=== PATIENT | female | born 1990 | race Caucasian/White ===

== ENCOUNTER 2016-09-28 10:09 | Emergency (ER) | payer MEDICAID, OTHER ==
[~2016-09-28] VITALS: Ht 172.7 cm; Wt 106.0 kg
[~2016-09-28 10:09] MED LIST: IBUP800T23 PO; TRAM50 PO
[2016-09-28 10:14] VITALS: BP 119/79; PULSE 82; RESP 16; TEMP 97.7; O2SAT 100
--- NOTE | 2016-09-28 10:33 | PD ---
HPI Chief Complaint: ENT Complaint Time Seen by Provider: 10:23 Travel History International Travel<30 days: No Contact w/Intl Traveler<30days: No Traveled to known affect area: No History of Present Illness HPI This 26-year-old female presents with complaint of sore throat. She is concerned that she might have strep. She has had a sore throat for a couple of days. She noted some redness and exudate on the throat. Painful swallowing. sHe is generally healthy. PFSH Past Medical History Cancer: No Cardiovascular Problems: No Diabetes: No Diminished Hearing: No Glaucoma: No Hepatitis: No Hiatal Hernia: No Hypertension: No Respiratory: No Immunizations Current: Yes (school shots utd) Thyroid Disease: No PNEUMOCCOCAL Vaccine (Year): 2 ?: Not LMP: NEXPLANON : 0 Ovarian Cysts: Yes (LEFT OVARIAN CYST REMOVED 09/14/06, ALSO IN 2007,2008) Past Surgical History Abdominal Surgery: No Cardiac Surgery: No Ear Surgery: No Endocrine Surgery: No Eye Surgery: No Genitourinary Surgery: No Gynecologic Surgery: Yes (ovarian cyst removed 09/14/06,AND 2007) Neurologic Surgery: No Oral Surgery: No Pacemaker: No Thoracic Surgery: No Other Surgery: Yes (ganglion cyst removed - LEFT WRIST) Social History Alcohol Use: Yes Tobacco Use: No Substance Use: No Allergies-Medications (Allergen,Severity, Reaction): Coded Allergies: No Known Allergies (Verified , 09/28/16) Reported Meds & Prescriptions Reported Meds & Active Scripts Active Review of Systems General / Constitutional: Positive: Fever, No: Chills Eyes: No: Diploplia, Blurred Vision HENT: Positive: Sore Throat, No: Headaches, Vertigo Cardiovascular: No: Chest Pain or Discomfort Respiratory: Positive: Cough Gastrointestinal: No: Vomiting, Diarrhea Genitourinary: No: Frequency Skin: No Rash Neurologic: No: Weakness Physical Exam Narrative GENERAL: Well-developed female SKIN: Warm and dry. HEAD: Atraumatic. Normocephalic. EYES: Pupils equal and round. No scleral icterus. No injection or drainage. ENT: No nasal bleeding or discharge. Mucous membranes pink and moist. Posterior pharynx on the right side is a laceration about 1 cm in diameter. There is diffuse erythema of the posterior pharynx. There are a few shotty anterior cervical nodes NECK: Trachea midline. No JVD. CARDIOVASCULAR: Regular rate and rhythm. No murmur appreciated. RESPIRATORY: No accessory muscle use. Clear to auscultation. Breath sounds equal bilaterally. GASTROINTESTINAL: Abdomen soft, non-tender, nondistended. Hepatic and splenic margins not palpable. MUSCULOSKELETAL: No obvious deformities. No clubbing. No cyanosis. No edema. NEUROLOGICAL: Awake and alert. No obvious cranial nerve deficits. Motor grossly within normal limits. Normal speech. PSYCHIATRIC: Appropriate mood and affect; insight and judgment normal. Data Data Last Documented VS Vital Signs Date Time Temp Pulse Resp B/P Pulse Ox O2 Delivery O2 Flow Rate FiO2 09/28/16 10:14 97.7 82 16 119/79 100 Orders Group A Rapid Strep Screen (09/28/16 10:29) Strep Culture (Group A) (09/28/16 10:35) MDM Medical Decision Making Medical Screen Exam Complete: Yes Emergency Medical Condition: Yes Medical Record Reviewed: Yes Differential Diagnosis Differential includes strep throat, viral pharyngitis, Narrative Course Test for strep is negative. Patient will be treated for viral pharyngitis Diagnosis Primary Impression: Acute viral pharyngitis Additional Instructions: Tylenol or Motrin for pain, force fluids Disposition: 01 DISCHARGE HOME Condition: Stable Carlos Arroyo MD Sep 28, 2016 10:33
== END 2016-09-28 11:38 | disposition home or self-care (01) ==
LOC: PHEFT 10:09
DX: J02.8 Acute pharyngitis due to other specified organisms (principal)
CPT/HCPCS: 87081; 87880; 99283

== ENCOUNTER 2016-12-15 13:45 | Emergency (ER) | payer MEDICAID, OTHER ==
[~2016-12-15] VITALS: Ht 172.7 cm; Wt 100.0 kg
[2016-12-15 13:47] VITALS: BP 149/92; PULSE 117; RESP 16; TEMP 98.4; O2SAT 98
--- NOTE | 2016-12-15 13:51 | PD ---
Physical Exam Time Seen by Provider: 13:49 Narrative 26yo F c/o sore throat a little over a week. Reports DELATORRE. Reports fever 102.5 last night. VS reviewed. Patient seen in triage. Awaiting bed placement. Data Data Last Documented VS Vital Signs Date Time Temp Pulse Resp B/P Pulse Ox O2 Delivery O2 Flow Rate FiO2 12/15/16 13:47 98.4 117 16 149/92 98 MDM Supervised Visit with NORA: Samina Kline December 15, 2016 13:50
--- NOTE | 2016-12-15 14:32 | PD ---
HPI Chief Complaint: Cold / Flu Symptoms Time Seen by Provider: 14:31 Travel History International Travel<30 days: No Contact w/Intl Traveler<30days: No Traveled to known affect area: No PFSH Past Medical History Cancer: No Cardiovascular Problems: No Diabetes: No Diminished Hearing: No Glaucoma: No Hepatitis: No Hiatal Hernia: No Hypertension: No Respiratory: No Immunizations Current: Yes (school shots utd) Thyroid Disease: No PNEUMOCCOCAL Vaccine (Year): 2 : 0 Ovarian Cysts: Yes (LEFT OVARIAN CYST REMOVED 09/14/06, ALSO IN 2007,2008) Past Surgical History Abdominal Surgery: No Cardiac Surgery: No Ear Surgery: No Endocrine Surgery: No Eye Surgery: No Genitourinary Surgery: No Gynecologic Surgery: Yes (ovarian cyst removed 09/14/06,AND 2007) Neurologic Surgery: No Oral Surgery: No Pacemaker: No Thoracic Surgery: No Other Surgery: Yes (ganglion cyst removed - LEFT WRIST) Social History Alcohol Use: Yes Tobacco Use: No Substance Use: No Allergies-Medications (Allergen,Severity, Reaction): Coded Allergies: No Known Allergies (Verified , 09/28/16) Reported Meds & Prescriptions Reported Meds & Active Scripts Active Data Data Last Documented VS Vital Signs Date Time Temp Pulse Resp B/P Pulse Ox O2 Delivery O2 Flow Rate FiO2 12/15/16 13:47 98.4 117 16 149/[address] Agarwal MD December 15, 2016 14:32
[2016-12-15] MEDS ORDERED: IBUPROFEN 800 MG TAB PO ONE (16:30)
--- NOTE | 2016-12-15 16:40 | PD ---
HPI Chief Complaint: Cold / Flu Symptoms Time Seen by Provider: 14:45 Travel History International Travel<30 days: No Contact w/Intl Traveler<30days: No Traveled to known affect area: No History of Present Illness HPI 26-year-old female came to the emergency room with history of sore throat for past 1 week and fever for past 2 days. Patient says her boyfriend was here for the exact same condition and has been discharged home with diagnosis of strep pharyngitis an antibiotic prescription. Patient says that she last took Motrin last night. Temperature here initially upon arrival was afebrile. Patient says she's been feeling warm and I retook an oral temperature and it was 100.7. She is complaining of headache, neck pain as well as chest pain. No history of vomiting or diarrhea. She is otherwise a healthy person. [facility] Past Medical History Narrative Medical List of her past medical, surgical, social and family history was reviewed from the nursing note. Medical History: Denies Significant Hx Cancer: No Cardiovascular Problems: No Diabetes: No Diminished Hearing: No Glaucoma: No Hepatitis: No Hiatal Hernia: No Hypertension: No Respiratory: No Immunizations Current: Yes (school shots utd) Thyroid Disease: No Tetanus Vaccination: < 5 Years Influenza Vaccination: No PNEUMOCCOCAL Vaccine (Year): 2 ?: Not LMP: 11/07/16 : 0 Ovarian Cysts: Yes (LEFT OVARIAN CYST REMOVED 09/14/06, ALSO IN 2007,2008) Past Surgical History Abdominal Surgery: No Cardiac Surgery: No Ear Surgery: No Endocrine Surgery: No Eye Surgery: No Genitourinary Surgery: No Gynecologic Surgery: Yes (ovarian cyst removed 09/14/06,AND 2007) Neurologic Surgery: No Oral Surgery: No Pacemaker: No Thoracic Surgery: No Other Surgery: Yes (ganglion cyst removed - LEFT WRIST) Social History Alcohol Use: No Tobacco Use: No Substance Use: No Allergies-Medications (Allergen,Severity, Reaction): Coded Allergies: No Known Allergies (Verified , 09/28/16) Comments No known drug allergies. Reported Meds & Prescriptions Reported Meds & Active Scripts Active Diflucan (Fluconazole) 150 Mg Tab 150 Mg PO ONCE Penicillin V Potassium 500 Mg Tab 500 Mg PO Q6H 10 Days Narrative Medication List of her home medications reviewed from the nursing note. Review of Systems Except as stated in HPI: all other systems reviewed are Neg Physical Exam Narrative GENERAL: Awake, alert, obese, mild distress SKIN: Focused skin assessment warm/dry. HEAD: Atraumatic. Normocephalic. EYES: Pupils equal and round. No scleral icterus. No injection or drainage. ENT: No nasal bleeding or discharge. Mucous membranes pink and moist. Pharynx is erythematous, some tonsillar enlargement with slight exudates. TMs bilaterally have light reflex present NECK: Trachea midline. No JVD. CARDIOVASCULAR: Regular rate and rhythm. No murmur appreciated. RESPIRATORY: No accessory muscle use. Clear to auscultation. Breath sounds equal bilaterally. GASTROINTESTINAL: Abdomen soft, non-tender, nondistended. Hepatic and splenic margins not palpable. MUSCULOSKELETAL: No obvious deformities. No clubbing. No cyanosis. No edema. NEUROLOGICAL: Awake and alert. No obvious cranial nerve deficits. Motor grossly within normal limits. Normal speech. PSYCHIATRIC: Appropriate mood and affect; insight and judgment normal. Data Data Last Documented VS Vital Signs Date Time Temp Pulse Resp B/P Pulse Ox O2 Delivery O2 Flow Rate FiO2 12/15/16 16:26 14 12/15/16 13:47 98.4 117 149/92 98 Orders Group A Rapid Strep Screen (12/15/16 16:19) Ibuprofen (Motrin) (12/15/16 16:30) MDM Medical Decision Making Medical Screen Exam Complete: Yes Emergency Medical Condition: Yes Medical Record Reviewed: Yes Differential Diagnosis Strep pharyngitis, viral pharyngitis Narrative Course 4:39 PM awaiting for the rapid strep to be resulted. Patient was given Motrin for the fever and pain. 4:53 PM awaiting for the rapid strep. Case signed over to the oncoming ER physician. Procedures EKG Prior to Arrival: No Scripts Fluconazole (Diflucan)150 Mg [id number] Mg PO ONCE #1 TAB Ref 0 Prov:Nilson Canseco MD 12/15/16 Penicillin V Potassium 500 Mg [id number] Mg PO Q6H 10 Days Ref 0 Prov:Nilson Canseco MD 12/15/16 Ct Agarwal MD December 15, 2016 16:40
--- NOTE | 2016-12-15 17:03 | PD ---
Physical Exam Date Seen by Provider: December 15, 2016 Time Seen by Provider: 17:02 Narrative The patient is a 26-year-old female was initially evaluated by the previous physician, Dr. Agarwal. The patient was signed out of 5 PM with strep screen pending. Data Data Last Documented VS Vital Signs Date Time Temp Pulse Resp B/P Pulse Ox O2 Delivery O2 Flow Rate FiO2 12/15/16 16:26 14 12/15/16 13:47 98.4 117 149/92 98 Orders Group A Rapid Strep Screen (12/15/16 16:19) Ibuprofen (Motrin) (12/15/16 16:30) MDM Medical Record Reviewed: Yes Supervised Visit with NORA: No Interpretation(s) Date/Time Procedure Status Source Growth 12/15/16 16:45 Group A Streptococcus Screen (ESTUARDO) - Final Complete Throat Pos For Grp A Strep Antigen Differential Diagnosis Differential diagnoses includes strep pharyngitis, viral pharyngitis, URI, viral syndrome, mononucleosis. Narrative Course The patient was initially evaluated by Dr. Agarwal, please refer to the initial history, physical, diagnostic evaluation, and treatment modality plan. The patient was signed out at 5 PM with strep screen pending. The patient's strep screen is positive for group A strep, therefore, the patient will be treated. The patient states she gets a yeast infection when she is on penicillin, therefore, the patient will be prescribed 1 Diflucan tablet to take at the end of treatment. Diagnosis Primary Impression: Strep pharyngitis Patient Instructions: General Instructions Additional Instruction: Medications as directed. Take Diflucan when you're finished with the penicillin. Tylenol and/or Motrin for symptoms. Plenty fluids to stay hydrated. Follow-up with your primary physician. Med/Other Pt SpecificInfo: Prescription(s) given Scripts Fluconazole (Diflucan)150 Mg [id number] Mg PO ONCE #1 TAB Ref 0 Prov:Nilson Canseco MD 12/15/16 Penicillin V Potassium 500 Mg [id number] Mg PO Q6H 10 Days Ref 0 Prov:Nilson Canseco MD 12/15/16 Disposition: 01 DISCHARGE HOME Condition: Stable Nilson Canseco MD December 15, 2016 17:03
[2016-12-15] MEDS ORDERED: DIFL150T PO (17:41)
[2016-12-15] MEDS ORDERED: PENI500T PO (17:41)
== END 2016-12-15 18:01 | disposition home or self-care (01) ==
LOC: NEPD 13:45
DX: J02.0 Streptococcal pharyngitis (principal); B95.0 Streptococcus, group A, as the cause of diseases classified elsewhere; R50.9 Fever, unspecified; R51 Headache; M54.2 Cervicalgia; R07.9 Chest pain, unspecified
CPT/HCPCS: 87880; 99283

== ENCOUNTER 2017-03-11 22:03 | Emergency (ER) | payer MEDICAID ==
[~2017-03-11] VITALS: Ht 172.7 cm; Wt 105.0 kg
[~2017-03-11 22:03] MED LIST changes: +DIFL150T PO; -IBUP800T23 PO; +PENI500T PO; -TRAM50 PO
[2017-03-11 22:05] VITALS: BP 161/93; PULSE 72; RESP 16; TEMP 98.4; O2SAT 99
[2017-03-11 23:57] VITALS: BP 132/82; PULSE 79; RESP 16; O2SAT 100
[2017-03-12] MEDS ORDERED: SODIUM CHLORIDE 0.9% FLUSH 10 ML FLUSH IVF PRN
--- NOTE | 2017-03-12 00:12 | PD ---
HPI Chief Complaint: Chest Pain Time Seen by Provider: 23:59 Travel History International Travel<30 days: No Contact w/Intl Traveler<30days: No Traveled to known affect area: No History of Present Illness HPI 26-year-old female presents today with complaints of chest pain starting 2-3 hours prior to arrival. She reports it as pressure-like in her left sided chest rating to her left jaw. She denies any diaphoresis or nausea. She does report shortness of breath. Patient does state that she gets anxious and has been going through a lot of stress. She's never had pain like this before. She has no risk factors for cardiac disease. The patient has no pulmonary embolus risk factors. There are no other complaints time my examination. Incidentally she does have pink eye. She states her boyfriend had it and she hasn't now on the right eye. PFSH Past Medical History Cancer: No Cardiovascular Problems: No Diabetes: No Diminished Hearing: No Glaucoma: No Hepatitis: No Hiatal Hernia: No Hypertension: No Respiratory: No Immunizations Current: Yes (school shots utd) Thyroid Disease: No Influenza Vaccination: No PNEUMOCCOCAL Vaccine (Year): 2 ?: Not LMP: 02/03/17 : 0 Ovarian Cysts: Yes (LEFT OVARIAN CYST REMOVED 09/14/06, ALSO IN 2007,2008) Past Surgical History Abdominal Surgery: No Cardiac Surgery: No Ear Surgery: No Endocrine Surgery: No Eye Surgery: No Genitourinary Surgery: No Gynecologic Surgery: Yes (ovarian cyst removed 09/14/06,AND 2007) Neurologic Surgery: No Oral Surgery: No Pacemaker: No Thoracic Surgery: No Other Surgery: Yes (ganglion cyst removed - LEFT WRIST) Social History Alcohol Use: No Tobacco Use: No Substance Use: No Allergies-Medications (Allergen,Severity, Reaction): Coded Allergies: No Known Allergies (Verified , 09/28/16) Reported Meds & Prescriptions Reported Meds & Active Scripts Active No Active Prescriptions or Reported Medications Review of Systems Except as stated in HPI: all other systems reviewed are Neg General / Constitutional: No: Fever, Chills HENT: No: Headaches, Lightheadedness, Neck Pain Cardiovascular: Positive: Chest Pain or Discomfort, No: Palpitations, Irregular Rhythm Respiratory: Positive: Shortness of Breath, No: Cough Gastrointestinal: No: Nausea, Vomiting, Abdominal Pain Genitourinary: Positive: Other (spotting. He reports being a couple days late for her period.), No: Urgency, Frequency, Dysuria Musculoskeletal: No: Pain Neurologic: No: Weakness, Dizziness, Headache Physical Exam Narrative GENERAL: Well-nourished, well-developed patient, in no acute distress. SKIN: Focused skin assessment warm/dry. HEAD: Normocephalic/atraumatic. EYES: No scleral icterus. No injection or drainage. NECK: Supple, trachea midline. No JVD or lymphadenopathy. CARDIOVASCULAR: Regular rate and rhythm without murmurs, gallops, or rubs. RESPIRATORY: Breath sounds equal bilaterally. No accessory muscle use. GASTROINTESTINAL: Abdomen soft, non-tender, nondistended. MUSCULOSKELETAL: No cyanosis, or edema. No calf tenderness or swelling. NEUROLOGICAL: Awake and alert. Cranial nerves II through XII intact. Motor grossly within normal limits. Five out of 5 muscle strength in all muscle groups. Normal speech. Data Data Last Documented VS Vital Signs Date Time Temp Pulse Resp B/P Pulse Ox O2 Delivery O2 Flow Rate FiO2 03/12/17 00:17 18 100 03/11/17 23:57 79 132/82 Room Air 03/11/17 22:05 98.4 Orders Electrocardiogram (03/11/17 23:59) Basic Metabolic Panel (Bmp) (03/11/17 23:59) Ckmb (Isoenzyme) Profile (03/11/17 23:59) Complete Blood Count With Diff (03/11/17 23:59) Troponin I (03/11/17 23:59) Chest, Single Ap (03/11/17 23:59) Ecg Monitoring (03/11/17 23:59) Bilateral Bp Monitoring (03/11/17 23:59) Iv Access Insert/Monitor (03/11/17 23:59) Oximetry (03/11/17 23:59) Oxygen Administration (03/11/17 23:59) Sodium Chloride 0.9% Flush (Ns Flush) (03/12/17 00:00) Ed Urine Pregnancytest Poc (03/11/17 23:59) Labs Laboratory Tests Test 03/12/17 00:10 White Blood Count 10.1 TH/MM3 Red Blood Count 4.25 MIL/MM3 Hemoglobin 11.0 GM/DL Hematocrit 34.6 % Mean Corpuscular Volume 81.3 FL Mean Corpuscular Hemoglobin 25.8 PG Mean Corpuscular Hemoglobin 31.7 % Concent Red Cell Distribution Width 13.6 % Platelet Count 400 TH/MM3 Mean Platelet Volume 7.7 FL Neutrophils (%) (Auto) 57.0 % Lymphocytes (%) (Auto) 27.9 % Monocytes (%) (Auto) 12.6 % Eosinophils (%) (Auto) 1.3 % Basophils (%) (Auto) 1.2 % Neutrophils # (Auto) 5.8 TH/MM3 Lymphocytes # (Auto) 2.8 TH/MM3 Monocytes # (Auto) 1.3 TH/MM3 Eosinophils # (Auto) 0.1 TH/MM3 Basophils # (Auto) 0.1 TH/MM3 CBC Comment DIFF FINAL Differential Comment Sodium Level 142 MEQ/L Potassium Level 3.6 MEQ/L Chloride Level 108 MEQ/L Carbon Dioxide Level 24.1 MEQ/L Anion Gap 10 MEQ/L Blood Urea Nitrogen 12 MG/DL Creatinine 0.58 MG/DL Estimat Glomerular Filtration 128 ML/MIN Rate Random Glucose 76 MG/DL Calcium Level 8.2 MG/DL Total Creatine Kinase 96 U/L Troponin I LESS THAN 0.02 NG/ML MDM Medical Decision Making Medical Screen Exam Complete: Yes Emergency Medical Condition: Yes Differential Diagnosis Muscle skeletal pain versus stress related versus ACS versus pulmonary embolus Narrative Course 26-year-old female presents with complaints of chest pain prior to arrival. The patient's EKG and cardiac enzymes are within normal limits. The patient does have a history of anxiety but does not treated for this. Patient states she is going through a lot of stress. I informed her that this is unlikely her heart. She is reassured. She is instructed to avoid stressful episodes. She is also instructed to avoid drinking Mountain Dew caffeinated beverages. She has no DVT risk factors. She'll be discharged told to follow up with primary care physician of her choice. Diagnosis Primary Impression: Atypical chest pain Additional Impression: acute life stressors. Scripts No Active Prescriptions or Reported Meds Disposition: DISCHARGE HOME Condition: Stable Man Sanchez MD Mar 12, 2017 00:12
[2017-03-12 00:17] VITALS: RESP 18; O2SAT 100
--- NOTE | 2017-03-12 01:00 | RADRPT ---
EXAM DATE/TIME: 03/12/2017 00:17 [facility] COMPARISON: No previous studies available for comparison. INDICATIONS : Left sided chest pain. MEDICAL HISTORY : None. SURGICAL HISTORY : None. ENCOUNTER: Initial ACUITY: 1 day PAIN SCORE: 8/10 LOCATION: Left chest FINDINGS: A single view of the chest demonstrates the lungs to be symmetrically aerated without evidence of mas s, infiltrate or effusion. The cardiomediastinal contours are unremarkable. Osseous structures are intact. CONCLUSION: 1. No acute cardiopulmonary disease. Trey Lizarraga MD on March 12, 2017 at 0:58 Board Certified Radiologist. This report was verified electronically.
[2017-03-12 02:56] LABS: AUTOMATED NEUTROPHIL # 5.8 TH/MM3 (1.8-7.7); BASOPHIL # 0.1 TH/MM3 (0-0.2); BASOPHIL % 1.2 % (0.0-2.0); EOSINOPHIL # 0.1 TH/MM3 (0-0.4); EOSINOPHIL % 1.3 % (0.0-4.0); HEMATOCRIT 34.6 % (35.0-46.0); HEMO FLAGS DIFF FINAL; LYMPH % 27.9 % (9.0-44.0); LYMPHOCYTE # 2.8 TH/MM3 (1.0-4.8); MEAN CELL VOLUME 81.3 FL (80.0-100.0); MEAN CORPUSCULAR HEMOGLOBIN 25.8 PG (27.0-34.0); MEAN CORPUSCULAR HGB CONC 31.7 % (32.0-36.0); MONO % 12.6 % (0.0-8.0); PLATELET COUNT 400 TH/MM3 (150-450); RED BLOOD COUNT 4.25 MIL/MM3 (4.00-5.30); RED CELL DISTRIBUTION WIDTH 13.6 % (11.6-17.2); WHITE BLOOD COUNT 10.1 TH/MM3 (4.0-11.0)
[2017-03-12 03:18] LABS: ANION GAP 10 MEQ/L (5-15); BICARBONATE 24.1 MEQ/L (21.0-32.0); BLOOD UREA NITROGEN 12 MG/DL (7-18); CHLORIDE 108 MEQ/L (98-107); GLOMERULAR FILTRATION RATE 128 ML/MIN (>89); POTASSIUM 3.6 MEQ/L (3.5-5.1); SODIUM (NA) 142 MEQ/L (136-145)
[2017-03-12 03:24] LABS: CREATINE KINASE 96 U/L (26-192)
--- NOTE | 2017-03-12 11:07 | EKG ---
Date Performed: 03/12/2017 Time Performed: 00:14:57 PTAGE: 26 years EKG: Sinus rhythm NORMAL ECG Since PREVIOUS TRACING , no significant change noted PREVIOUS TRACIN09/08/2011 23.48 DOCTOR: Trey Herrera Interpretating Date/Time 03/12/2017 11:06:37
== END 2017-03-12 04:11 | disposition home or self-care (01) ==
LOC: NEPE 22:03
DX: R07.89 Other chest pain (principal); F43.9 Reaction to severe stress, unspecified
CPT/HCPCS: 71010; 80048; 82550; 84484; 84703; 85025; 93005; 99285

== ENCOUNTER 2017-03-15 15:43 | Emergency (ER) | payer MEDICAID ==
[~2017-03-15] VITALS: Ht 175.3 cm; Wt 111.0 kg
[2017-03-15 15:47] VITALS: BP 136/76; PULSE 91; RESP 16; TEMP 98.9; O2SAT 98
[2017-03-15] MEDS ORDERED: POLY3.5O EACH EYE (16:42)
--- NOTE | 2017-03-15 16:44 | PD ---
HPI Chief Complaint: Eye Problems/Injury Time Seen by Provider: 16:35 Travel History International Travel<30 days: No Contact w/Intl Traveler<30days: No Traveled to known affect area: No History of Present Illness HPI 26-year-old female presents to the emergency room for evaluation of bilateral eye redness, drainage, and itching for the past few days. Symptoms started first in the right eye and a few days ago spread to the left eye. She wakes up every morning with her eyes crusted shut. Reports extreme itching and she has tried to avoid scratching but has been rubbing her right eye persistently. She has mild photophobia in the sun. No significant tearing, pain, or changes in visual acuity. Patient's boyfriend had bilateral conjunctivitis just prior to her developing symptoms. She woke up one morning with slight irritation in her right eye since she used his erythromycin ointment and the following morning had severe worsening of symptoms. She does not use contacts. [facility] Past Medical History Medical History: Denies Significant Hx Cancer: No Cardiovascular Problems: No Diabetes: No Diminished Hearing: No Glaucoma: No Hepatitis: No Hiatal Hernia: No Hypertension: No Respiratory: No Immunizations Current: Yes (school shots utd) Thyroid Disease: No Influenza Vaccination: No PNEUMOCCOCAL Vaccine (Year): 2 ?: Not LMP: XPLANON : 0 Ovarian Cysts: Yes (LEFT OVARIAN CYST REMOVED 09/14/06, ALSO IN 2007,2008) Past Surgical History Abdominal Surgery: No Cardiac Surgery: No Ear Surgery: No Endocrine Surgery: No Eye Surgery: No Genitourinary Surgery: No Gynecologic Surgery: Yes (ovarian cyst removed 09/14/06,AND 2007) Neurologic Surgery: No Oral Surgery: No Pacemaker: No Thoracic Surgery: No Other Surgery: Yes (ganglion cyst removed - LEFT WRIST) Social History Alcohol Use: No Tobacco Use: No Substance Use: No Allergies-Medications (Allergen,Severity, Reaction): Coded Allergies: No Known Allergies (Verified , 03/15/17) Reported Meds & Prescriptions Reported Meds & Active Scripts Active Polymyxin B-Trimethoprim Opth (Trimethoprim-Polymyxin B Opth) 10,000-0.1 Unit/Ml -% Soln 1 Drop EACH EYE Q6HR Bacitracin-Polymyxin B Opth Oint (Bacitracin/Polymyxin B Sulfate) 500-10,000 Unit/Gm Oint 1 Applic EACH EYE Q6HR Review of Systems Except as stated in HPI: all other systems reviewed are Neg Physical Exam Narrative GENERAL: Well-nourished, well-developed female in no acute distress. Afebrile. Ambulatory. SKIN: Focused skin assessment warm/dry. HEAD: Normocephalic. EYES: PERRL, EOMI without pain. Severe bilateral injection with chemosis of the right eye. Mild discharge. No scleral icterus. No significant photophobia on exam. Fluorescein staining bilaterally reveals no corneal abrasion, ulceration, or foreign body. Visual acuity is 20/40 in the left and 20/25 in the right. NECK: Supple, trachea midline. No JVD or lymphadenopathy. CARDIOVASCULAR: Regular rate and rhythm without murmurs, gallops, or rubs. RESPIRATORY: Breath sounds equal bilaterally. No accessory muscle use. PSYCHIATRIC: No delusional thought processes. No hallucinations. Data Data Last Documented VS Vital Signs Date Time Temp Pulse Resp B/P Pulse Ox O2 Delivery O2 Flow Rate FiO2 03/15/17 15:47 98.9 91 16 136/76 98 MDM Medical Decision Making Medical Screen Exam Complete: Yes Emergency Medical Condition: Yes Medical Record Reviewed: Yes Differential Diagnosis Conjunctivitis, scleritis, iritis, foreign body Narrative Course 26-year-old female presents to the emergency room for evaluation of bilateral eye redness, drainage, and itching for the past week. Patient's boyfriend was diagnosed with bilateral conjunctivitis just prior to her developing symptoms. She is waking up with her eyes crusted shut every morning. She has been using her boyfriend's erythromycin eye ointment without significant relief in symptoms. Physical exam reveals moderate injection bilaterally with ecchymosis on the right. Patient could have resistant strain of conjunctivitis or it could be viral. She will be given bacitracin/Ali sporran eyedrops and told to follow-up with transformation manager or return for worsening symptoms. She understands and agrees to plan. Diagnosis Primary Impression: Conjunctivitis Qualified Code: H10.33 - Acute bacterial conjunctivitis of both eyes Referrals: Legal Biller Primary Care Physician Patient Instructions: Conjunctivitis (ED), General Instructions Additional Instructions: Rest and drink plenty of fluids. Apply drops 4 times daily for 5-7 days Follow-up with a primary care physician. Return to the emergency room for worsening symptoms. Med/Other Pt SpecificInfo: Prescription(s) given Scripts Trimethoprim-Polymyxin B Opth (Polymyxin B-Trimethoprim Opth)10,000-0.1 Unit/Ml- % Soln1 Drop EACH EYE Q6HR #1 BOTTLE Prov:Dionne Max DO 03/15/17 Bacitracin-Polymyxin B Opth Oint 500-10,000 Unit/Gm Oint1 Applic EACH EYE Q6HR #3.5 GM Ref 0 Prov:Dionne Max DO 03/15/17 Disposition: 01 DISCHARGE HOME Condition: Stable Shahana Ta Mar 15, 2017 16:44
[2017-03-15] MEDS ORDERED: TRIMSOL3 EACH EYE (16:51)
== END 2017-03-15 16:54 | disposition home or self-care (01) ==
LOC: PHED 15:43
DX: H10.33 Unspecified acute conjunctivitis, bilateral (principal)
CPT/HCPCS: 99283

== ENCOUNTER 2017-03-28 21:00 | Emergency (ER) | payer MEDICAID ==
[~2017-03-28 21:00] MED LIST changes: -DIFL150T PO; -PENI500T PO; +POLY3.5O EACH EYE; +TRIMSOL3 EACH EYE
[2017-03-28 21:02] VITALS: BP 172/95; PULSE 80; RESP 16; TEMP 98.7; O2SAT 100
== END 2017-03-28 23:59 | disposition left against medical advice (07) ==
LOC: NED 21:00
DX: K08.89 Other specified disorders of teeth and supporting structures (principal); Z53.21 Procedure and treatment not carried out due to patient leaving prior to being seen by health care provider
CPT/HCPCS: 99281

== ENCOUNTER 2017-08-03 17:57 | Emergency (ER) | payer MEDICAID ==
[~2017-08-03] VITALS: Ht 175.3 cm; Wt 115.2 kg
[2017-08-03 18:09] VITALS: BP 149/58; PULSE 107; RESP 16; TEMP 102.7; O2SAT 97
[2017-08-03 18:26] VITALS: BP 141/82; PULSE 105; RESP 18; TEMP 101; O2SAT 99
[2017-08-03] MEDS ORDERED: SODIUM CHLOR 0.9% 1000 ML INJ 1,000 ML IV SCH (18:39)
[2017-08-03] MEDS ORDERED: SODIUM CHLORIDE 0.9% FLUSH 10 ML FLUSH IV FLUSH PRN (18:45)
[2017-08-03] MEDS ORDERED: ONDANSETRON HCL 4 MG/2 ML VIAL IVP ONE (18:45)
--- NOTE | 2017-08-03 18:51 | PD ---
HPI Chief Complaint: Abdominal Pain Time Seen by Provider: 18:39 Travel History International Travel<30 days: No Contact w/Intl Traveler<30days: No Traveled to known affect area: No History of Present Illness HPI 27-year-old female patient presents to the ER today because she states that she has not been feeling well for the last 4-5 days, has had coughing, sore throat, body aches, chest discomfort especially with coughing and movements. She has been nauseous, vomiting, and constipated. She states that she has also been having abdominal pains which she currently measures at a 7 out of 10. She does not know any exacerbating or alleviating factors. She states that it goes to the back. She does not know any sick contacts. Modifying Factors: None Associated Signs & Symptoms: Cough, congestion, sore throat, body aches, chest discomfort, nausea, vomiting, constipation, abdominal pains with radiation to the back Risk Factors: None PFSH Past Medical History Cancer: No Cardiovascular Problems: No Diabetes: No Diminished Hearing: No Glaucoma: No Hepatitis: No Hiatal Hernia: No Hypertension: No Medical other: No Respiratory: No Immunizations Current: Yes (school shots utd) Thyroid Disease: No Tetanus Vaccination: Unknown PNEUMOCCOCAL Vaccine (Year): 2 ?: Not LMP: 07/08/17 : 0 Ovarian Cysts: Yes (LEFT OVARIAN CYST REMOVED 09/14/06, ALSO IN 2007,2008) Past Surgical History Abdominal Surgery: No Cardiac Surgery: No Ear Surgery: No Endocrine Surgery: No Eye Surgery: No Genitourinary Surgery: No Gynecologic Surgery: Yes (ovarian cyst removed 09/14/06,AND 2007) Neurologic Surgery: No Oral Surgery: No Pacemaker: No Thoracic Surgery: No Other Surgery: Yes (ganglion cyst removed - LEFT WRIST) Social History Alcohol Use: No Tobacco Use: No Substance Use: No Allergies-Medications (Allergen,Severity, Reaction): Coded Allergies: No Known Allergies (Verified Adverse Reaction, Unknown, 08/03/17) Reported Meds & Prescriptions Reported Meds & Active Scripts Active No Active Prescriptions or Reported Medications Review of Systems Except as stated in HPI: all other systems reviewed are Neg Physical Exam Narrative GENERAL: [Well-developed young female patient currently in mild distress. Awake and oriented 3. SKIN: Focused skin assessment warm/dry. HEAD: Atraumatic. Normocephalic. EYES: Pupils equal and round. No scleral icterus. No injection or drainage. ENT: Mucosa pink and moist. Notable erythema with no significant exudates. No uvular edema. No uvular, palatal, or tonsillar deviation. Airway patent. NECK: Trachea midline. No JVD. Supple. CARDIOVASCULAR: Regular rate and rhythm. No murmur appreciated. RESPIRATORY: No accessory muscle use. Clear to auscultation. Breath sounds equal bilaterally. GASTROINTESTINAL: Abdomen soft, right lower quadrant tenderness without guarding or rebound, nondistended. Hepatic and splenic margins not palpable. BACK: No CVA tenderness. No rash. No point tenderness on palpation of the spine. MUSCULOSKELETAL: No obvious deformities. No clubbing. No cyanosis. No edema. NEUROLOGICAL: Awake and alert. No obvious cranial nerve deficits. Motor grossly within normal limits. Normal speech. PSYCHIATRIC: Appropriate mood and affect; insight and judgment normal. Data Data Last Documented VS Vital Signs Date Time Temp Pulse Resp B/P (MAP) Pulse Ox O2 Delivery O2 Flow Rate FiO2 08/03/17 18:29 18 08/03/17 18:26 101.0 105 141/82 (101) 99 Room Air Orders Orders Complete Blood Count With Diff (08/03/17 18:39) Comprehensive Metabolic Panel (08/03/17 18:39) Lipase (08/03/17 18:39) Urinalysis - C+S If Indicated (08/03/17 18:39) Ct Abd/Pel W/O Iv Contrast (08/03/17 18:39) Iv Access Insert/Monitor (08/03/17 18:39) Ecg Monitoring (08/03/17 18:39) Oximetry (08/03/17 18:39) Ondansetron Inj (Zofran Inj) (08/03/17 18:45) Sodium Chlor 0.9% 1000 Ml Inj (Ns 1000 M (08/03/17 18:39) Sodium Chloride 0.9% Flush (Ns Flush) (08/03/17 18:45) Chest, Single Ap (08/03/17 18:39) Ed Urine Pregnancytest Poc (08/03/17 18:39) Acetaminophen (Tylenol) (08/03/17 19:00) MDM Medical Decision Making Medical Screen Exam Complete: Yes Emergency Medical Condition: Yes Medical Record Reviewed: Yes Differential Diagnosis Viral syndrome versus influenza versus pneumonia versus UTI versus renal colic versus acute cholecystitis Narrative Course Lab work, CAT scan, and IV fluids were initiated on the patient. Physician Communication Physician Communication Case is signed out to Dr. Agosto at 7 PM pending workup and reevaluation. Diagnosis Primary Impression: Abdominal pain Additional Impression: Atypical chest pain Scripts No Active Prescriptions or Reported Meds Condition: Stable Deana Burks MD Aug 03, 2017 18:51
[2017-08-03] MEDS ORDERED: ACETAMINOPHEN 500 MG CPLT PO ONE (19:00)
[2017-08-03 19:15] VITALS: O2SAT 97
[2017-08-03 19:15] LABS: AUTOMATED NEUTROPHIL # 6.7 TH/MM3 (1.8-7.7); BASOPHIL % 0.3 % (0.0-2.0); EOSINOPHIL % 0.1 % (0.0-4.0); HEMATOCRIT 36.1 % (35.0-46.0); HEMOGLOBIN 11.3 GM/DL (11.6-15.3); LYMPH % 3.9 % (9.0-44.0); LYMPHOCYTE # 0.3 TH/MM3 (1.0-4.8); MEAN CELL VOLUME 81.2 FL (80.0-100.0); MEAN CORPUSCULAR HEMOGLOBIN 25.4 PG (27.0-34.0); MEAN CORPUSCULAR HGB CONC 31.2 % (32.0-36.0); MEAN PLATELET VOLUME 7.2 FL (7.0-11.0); MONO % 10.2 % (0.0-8.0); MONOCYTE # 0.8 TH/MM3 (0-0.9); NEUT % 85.5 % (16.0-70.0); PLATELET COUNT 328 TH/MM3 (150-450); RED BLOOD COUNT 4.45 MIL/MM3 (4.00-5.30); RED CELL DISTRIBUTION WIDTH 13.2 % (11.6-17.2); WHITE BLOOD COUNT 7.8 TH/MM3 (4.0-11.0)
[2017-08-03 19:16] VITALS: BP 141/82; PULSE 98; RESP 18; O2SAT 98
[2017-08-03 19:23] LABS: CHLORIDE 103 MEQ/L (98-107); SODIUM (NA) 137 MEQ/L (136-145)
[2017-08-03 19:23] LABS: BILIRUBIN, URINE NEG (NEG); BLOOD, URINE SMALL (NEG); GLUCOSE,URINE NEG (NEG); KETONE, URINE NEG (NEG); NITRITE,URINE NEG (NEG); URINE LEUKOCYTE ESTERASE NEG (NEG)
[2017-08-03 19:26] LABS: ALBUMIN 3.5 GM/DL (3.4-5.0); BICARBONATE 27.6 MEQ/L (21.0-32.0); CALCIUM 8.3 MG/DL (8.5-10.1); GLUCOSE,RANDOM 95 MG/DL (74-106); LIPASE 69 U/L (73-393)
[2017-08-03 19:27] LABS: BLOOD UREA NITROGEN 9 MG/DL (7-18)
[2017-08-03 19:29] LABS: ALT (GPT) 29 U/L (10-53); AST (GOT) 18 U/L (15-37)
[2017-08-03 19:30] LABS: CREATININE 0.59 MG/DL (0.50-1.00); GLOMERULAR FILTRATION RATE 124 ML/MIN (>89)
[2017-08-03 19:30] LABS: URINE COLOR YELLOW (YELLW/STRAW)
[2017-08-03 19:31] LABS: TOTAL BILIRUBIN ADULT 0.5 MG/DL (0.2-1.0); TOTAL PROTEIN 7.4 GM/DL (6.4-8.2)
[2017-08-03 19:32] LABS: ALKALINE PHOSPHATASE 85 U/L (45-117)
[2017-08-03 19:32] LABS: MUCUS URINE MOD /lpf (OCC)
[2017-08-03 19:36] LABS: BACTERIA, URINE FEW /hpf
[2017-08-03 19:37] LABS: AMORPHOUS SEDIMENT, URINE MOD
--- NOTE | 2017-08-03 19:57 | RADRPT ---
EXAM DATE/TIME: 08/03/2017 19:05 [facility] COMPARISON: CHEST SINGLE AP, March 12, 2017, 0:17. INDICATIONS : Cough and fever and aches for 3 days. MEDICAL HISTORY : None. SURGICAL HISTORY : None. ENCOUNTER: Initial ACUITY: 3 days PAIN SCORE: 8/10 LOCATION: all over FINDINGS: A single view of the chest demonstrates the lungs to be symmetrically aerated without evidence of mas s, infiltrate or effusion. The cardiomediastinal contours are unremarkable. Osseous structures are intact. CONCLUSION: No evidence of acute cardiopulmonary disease. Nickolas Schwartz MD on August 03, 2017 at 19:55 Board Certified Radiologist. This report was verified electronically.
--- NOTE | 2017-08-03 19:59 | RADRPT ---
EXAM DATE/TIME: 08/03/2017 19:27 [facility] COMPARISON: Report only CT ABDOMEN & PELVIS W CONTRAST, March 30, 2009, 1:10. INDICATIONS : Evaluate for renal stone. Right lower quadrant pain radiating into lower back. ORAL CONTRAST: No oral contrast ingested. RADIATION DOSE: 21.02 CTDIvol (mGy) MEDICAL HISTORY : None SURGICAL HISTORY : None. ENCOUNTER: Initial ACUITY: 4 - 6 days PAIN SCALE: 10/10 LOCATION: Right lower quadrant TECHNIQUE: Volumetric scanning of the abdomen and pelvis was performed. Using automated exposure control and ad justment of the mA and/or kV according to patient size, radiation dose was kept as low as reasonably achievable to obtain optimal diagnostic quality images. DICOM format image data is available electro nically for review and comparison. FINDINGS: LOWER LUNGS: The visualized lower lungs are clear. LIVER: Homogeneous density without lesion. There is no dilation of the biliary tree. No calcified gallston es. SPLEEN: Normal size without lesion. PANCREAS: Within normal limits. KIDNEYS: Normal in size and shape. There is no mass, stone, or hydronephrosis. ADRENAL GLANDS: Within normal limits. VASCULAR: There is no aortic aneurysm. BOWEL/MESENTERY: The stomach, small bowel, and colon demonstrate no acute abnormality. There is no free intraperitone al air or fluid. Normal appendix. ABDOMINAL WALL: Within normal limits. RETROPERITONEUM: There is no lymphadenopathy. BLADDER: No wall thickening or mass. REPRODUCTIVE: Within normal limits. INGUINAL: There is no lymphadenopathy or hernia. MUSCULOSKELETAL: Within normal limits for patient age. CONCLUSION: Negative CT of the abdomen and pelvis. Nickolas Schwartz MD on August 03, 2017 at 19:56 Board Certified Radiologist. This report was verified electronically.
[2017-08-03] MEDS ORDERED: KETOROLAC TROMETHAMINE 30 MG/ML (IVP) VIAL IV PUSH ONE (20:15)
[2017-08-03] MEDS ORDERED: PROM6.256 PO (20:40)
[2017-08-03] MEDS ORDERED: NAPR500T2 PO (20:40)
[2017-08-03] MEDS ORDERED: OSEL60SU PO (20:40)
[2017-08-03] MEDS ORDERED: ZOFR4TAB3 SL (20:40)
--- NOTE | 2017-08-03 20:41 | PD ---
Data Data Last Documented VS Vital Signs Date Time Temp Pulse Resp B/P (MAP) Pulse Ox O2 Delivery O2 Flow Rate FiO2 08/03/17 19:16 98 18 141/82 (101) 98 Room Air 08/03/17 18:26 101.0 Orders Orders Complete Blood Count With Diff (08/03/17 18:39) Comprehensive Metabolic Panel (08/03/17 18:39) Lipase (08/03/17 18:39) Urinalysis - C+S If Indicated (08/03/17 18:39) Ct Abd/Pel W/O Iv Contrast (08/03/17 18:39) Iv Access Insert/Monitor (08/03/17 18:39) Ecg Monitoring (08/03/17 18:39) Oximetry (08/03/17 18:39) Ondansetron Inj (Zofran Inj) (08/03/17 18:45) Sodium Chlor 0.9% 1000 Ml Inj (Ns 1000 M (08/03/17 18:39) Sodium Chloride 0.9% Flush (Ns Flush) (08/03/17 18:45) Chest, Single Ap (08/03/17 18:39) Ed Urine Pregnancytest Poc (08/03/17 18:39) Acetaminophen (Tylenol) (08/03/17 19:00) Ketorolac Inj (Toradol Inj) (08/03/17 20:15) Influenzae A/B Antigen (08/03/17 20:07) Labs Laboratory Tests Test 08/03/17 18:50 08/03/17 19:00 Urine Color YELLOW Urine Turbidity MOD Urine pH 6.0 Urine Specific [place] 1.028 Urine Protein TRACE mg/dL Urine Glucose (UA) NEG mg/dL Urine Ketones NEG mg/dL Urine Occult Blood SMALL Urine Nitrite NEG Urine Bilirubin NEG Urine Leukocyte Esterase NEG Urine Squamous Epithelial Cells 6-8 /hpf Urine Amorphous Sediment MOD Urine Bacteria FEW /hpf Urine Mucus MOD /lpf Microscopic Urinalysis Comment CULT NOT INDICATED White Blood Count 7.8 TH/MM3 Red Blood Count 4.45 MIL/MM3 Hemoglobin 11.3 GM/DL Hematocrit 36.1 % Mean Corpuscular Volume 81.2 FL Mean Corpuscular Hemoglobin 25.4 PG Mean Corpuscular Hemoglobin Concent 31.2 % Red Cell Distribution Width 13.2 % Platelet Count 328 TH/MM3 Mean Platelet Volume 7.2 FL Neutrophils (%) (Auto) 85.5 % Lymphocytes (%) (Auto) 3.9 % Monocytes (%) (Auto) 10.2 % Eosinophils (%) (Auto) 0.1 % Basophils (%) (Auto) 0.3 % Neutrophils # (Auto) 6.7 TH/MM3 Lymphocytes # (Auto) 0.3 TH/MM3 Monocytes # (Auto) 0.8 TH/MM3 Eosinophils # (Auto) 0.0 TH/MM3 Basophils # (Auto) 0.0 TH/MM3 CBC Comment DIFF FINAL Differential Comment Blood Urea Nitrogen 9 MG/DL Creatinine 0.59 MG/DL Random Glucose 95 MG/DL Total Protein 7.4 GM/DL Albumin 3.5 GM/DL Calcium Level 8.3 MG/DL Alkaline Phosphatase 85 U/L Aspartate Amino Transf (AST/SGOT) 18 U/L Alanine Aminotransferase (ALT/SGPT) 29 U/L Total Bilirubin 0.5 MG/DL Sodium Level 137 MEQ/L Potassium Level 3.3 MEQ/L Chloride Level 103 MEQ/L Carbon Dioxide Level 27.6 MEQ/L Anion Gap 6 MEQ/L Estimat Glomerular Filtration Rate 124 ML/MIN Lipase 69 U/L MDM Supervised Visit with NORA: No Narrative Course This is a 27-year-old female who presents to the emergency department with multiple nonspecific complaints including body aches, fevers, chills, abdominal discomfort and sore throat. She had an extensive workup including labs, CT abdomen and pelvis and chest x-ray which were reassuring. Influenza test is positive for flu. Patient will be treated with Tamiflu and symptomatic management. I think she can be discharged home. Diagnosis Primary Impression: Influenza Patient Instructions: General Instructions Additional Instruction: If you develop severe chest pain, shortness of breath, sweating, lightheadedness , dizziness or difficulty breathing return to the emergency department immediately. Followup with your primary care physician in 2-3 days if your symptoms are not resolved. Med/Other Pt SpecificInfo: Prescription(s) given Scripts Ondansetron Odt (Zofran Odt) 4 Mg Tab 4 MG SL Q6HR Y for Nausea/Vomiting, #10 TAB 0 Refills Prov: Shilpi Agosto MD 08/03/17 Oseltamivir Liq (Tamiflu Liq) 6 Mg/Ml Cara 75 MG PO BID for Mgmt Viral Infection for 5 Days, ML 0 Refills Prov: Shilpi Agosto MD 08/03/17 Naproxen (Naproxen) 500 Mg Tab 500 MG PO BID for Pain Management, #20 TAB 0 Refills Prov: Shilpi Agosto MD 08/03/17 Promethazine-Codeine Liq (Promethazine-Codeine Liq) 6.25-10 Mg/5 Ml Syrp 5 ML PO Q6H Y for COUGH AND/OR COLD SYMPTOMS, #60 ML 0 Refills Prov: Shilpi Agosto MD 08/03/17 Disposition: 01 DISCHARGE HOME Condition: Stable Shilpi Agosto MD Aug 03, 2017 20:40
[2017-08-03 20:47] VITALS: BP 136/80; PULSE 96; RESP 18; O2SAT 98
[2017-08-03] MEDS ORDERED: OSELTAMIVIR PHOSPHATE 75 MG CAP PO ONE (21:00)
== END 2017-08-03 21:14 | disposition home or self-care (01) ==
LOC: PHED 17:57
DX: J09.X2 Influenza due to identified novel influenza A virus with other respiratory manifestations (principal); R07.89 Other chest pain; R11.2 Nausea with vomiting, unspecified; K59.00 Constipation, unspecified
CPT/HCPCS: 71010; 74176; 80053; 81001; 83690; 84703; 85025; 87804; 96361; 96374; 96375; 99285; J1885; J2405; J7030

== ENCOUNTER 2017-08-08 13:34 | Emergency (ER) | payer MEDICAID ==
[~2017-08-08] VITALS: Ht 175.3 cm; Wt 115.0 kg
[~2017-08-08 13:34] MED LIST changes: +NAPR500T2 PO; +OSEL60SU PO; -POLY3.5O EACH EYE; +PROM6.256 PO; -TRIMSOL3 EACH EYE; +ZOFR4TAB3 SL
[2017-08-08 13:52] VITALS: BP 142/87; PULSE 90; RESP 17; TEMP 98.6; O2SAT 99
[2017-08-08] MEDS ORDERED: ALBU6.7H INH (14:50)
[2017-08-08] MEDS ORDERED: PRED20 PO (14:50)
[2017-08-08] MEDS ORDERED: AZIT250T3 PO (14:50)
--- NOTE | 2017-08-08 14:50 | PD ---
HPI Chief Complaint: Respiratory Symptoms Time Seen by Provider: 14:07 Travel History International Travel<30 days: No Contact w/Intl Traveler<30days: No Traveled to known affect area: No History of Present Illness HPI 27-year-old female complains of hemoptysis this morning. She reports a few episodes of phlegm with droplets of blood. No chest pain or shortness of breath. She reports recent influenza infection. She does not smoke. No chest pain or dyspnea. No sore throat PFSH Past Medical History Cancer: No Cardiovascular Problems: No Diabetes: No Diminished Hearing: No Glaucoma: No Hepatitis: No Hiatal Hernia: No Hypertension: No Respiratory: No Immunizations Current: Yes (school shots utd) Thyroid Disease: No PNEUMOCCOCAL Vaccine (Year): 2 ?: Not : 0 Ovarian Cysts: Yes (LEFT OVARIAN CYST REMOVED 09/14/06, ALSO IN 2007,2008) Past Surgical History Abdominal Surgery: No Cardiac Surgery: No Ear Surgery: No Endocrine Surgery: No Eye Surgery: No Genitourinary Surgery: No Gynecologic Surgery: Yes (ovarian cyst removed 09/14/06,AND 2007) Neurologic Surgery: No Oral Surgery: No Pacemaker: No Thoracic Surgery: No Other Surgery: Yes (ganglion cyst removed - LEFT WRIST) Social History Alcohol Use: No Tobacco Use: No Substance Use: No Allergies-Medications (Allergen,Severity, Reaction): Coded Allergies: No Known Allergies (Verified Adverse Reaction, Unknown, 08/03/17) Reported Meds & Prescriptions Reported Meds & Active Scripts Active Proventil Hfa 6.7 GM Inh (Albuterol Sulfate) 90 Mcg/Act Aer 1 Puff INH Q4H PRN Prednisone 20 Mg Tab 40 Mg PO DAILY 3 Days Take 40 mg (2 tablets) daily for 5 days Azithromycin 250 Mg Tab 250 Mg PO DIRECTED Take 2 tabs (500 mg) on day 1 then 1 tab daily x 4 days. Zofran Odt (Ondansetron Odt) 4 Mg Tab 4 Mg SL Q6HR PRN Tamiflu Liq (Oseltamivir Phosphate) 6 Mg/Ml Cara 75 Mg PO BID 5 Days Naproxen 500 Mg Tab 500 Mg PO BID Promethazine-Codeine Liq 6.25-10 Mg/5 Ml Syrp 5 Ml PO Q6H PRN Review of Systems General / Constitutional: No: Fever Respiratory: Positive: Cough, No: Shortness of Breath Physical Exam Narrative GENERAL: 27-year-old female pleasant SKIN: Warm and dry. HEAD: Normocephalic. EYES: No scleral icterus. No injection or drainage. NECK: Supple, trachea midline. No JVD or lymphadenopathy. CARDIOVASCULAR: Regular rate and rhythm without murmurs, gallops, or rubs. RESPIRATORY: Breath sounds equal bilaterally. No accessory muscle use. Posterior oropharynx unremarkable. Data Data Last Documented VS Vital Signs Date Time Temp Pulse Resp B/P (MAP) Pulse Ox O2 Delivery O2 Flow Rate FiO2 08/08/17 13:52 98.6 90 17 142/87 (105) 99 Room Air VS reviewed Orders Orders Prednisone (Deltasone) (08/08/17 15:00) MDM Medical Decision Making Medical Screen Exam Complete: Yes Emergency Medical Condition: Yes Medical Record Reviewed: Yes Differential Diagnosis massive hemoptysis, pna, bhronchitis, lung mass Narrative Course Patient with a chest x-ray earlier this week which is unremarkable. Scripts as below. Return precautions discussed Diagnosis Primary Impression: Hemoptysis Additional Impression: Bronchitis Referrals: Primary Care Physician 2 days Med/Other Pt SpecificInfo: Prescription(s) given Scripts Albuterol 6.7 GM Inh (Proventil Hfa 6.7 GM Inh) 90 Mcg/Act Aer 1 PUFF INH Q4H Y for SHORTNESS OF BREATH, #1 INHALER 0 Refills Prov: Anibal Samuels MD 08/08/17 Prednisone (Prednisone) 20 Mg Tab 40 MG PO DAILY for 3 Days, #6 TAB 0 Refills Take 40 mg (2 tablets) daily for 5 days Prov: Anibal Samuels MD 08/08/17 Azithromycin (Azithromycin) 250 Mg Tab 250 MG PO DIRECTED for Infection, #6 TAB 0 Refills Take 2 tabs (500 mg) on day 1 then 1 tab daily x 4 days. Prov: Anibal Samuels MD 08/08/17 Disposition: 01 DISCHARGE HOME Condition: Stable Anibal Samuels MD Aug 08, 2017 14:50
[2017-08-08] MEDS ORDERED: predniSONE 20 MG TAB PO ONE (15:00)
== END 2017-08-08 15:06 | disposition home or self-care (01) ==
LOC: NEPD 13:34
DX: R04.2 Hemoptysis (principal); J40 Bronchitis, not specified as acute or chronic
CPT/HCPCS: 99284; J7512

== ENCOUNTER 2017-10-20 09:32 | Emergency (ER) | payer MEDICAID ==
[~2017-10-20] VITALS: Ht 172.7 cm; Wt 121.0 kg
[~2017-10-20 09:32] MED LIST changes: +ALBU6.7H INH; +AZIT250T3 PO; +PRED20 PO
[2017-10-20 09:35] VITALS: BP 153/103; PULSE 98; RESP 16; TEMP 97.9; O2SAT 99
--- NOTE | 2017-10-20 10:26 | PD ---
HPI . Rash Chief Complaint: Skin Problem Time Seen by Provider: 09:49 Travel History International Travel<30 days: No Contact w/Intl Traveler<30days: No Traveled to known affect area: No History of Present Illness HPI This patient presents with a 3 to four-day history of an axillary rash. It started in the left axilla and now also involves the right axilla. She describes her discomfort as a burning and rates the discomfort as 5/10. It is getting progressively worse. PFSH Past Medical History Cancer: No Cardiovascular Problems: No Diabetes: No Diminished Hearing: No Glaucoma: No Hepatitis: No Hiatal Hernia: No Hypertension: No Respiratory: No Immunizations Current: Yes (school shots utd) Thyroid Disease: No Tetanus Vaccination: > 5 Years Influenza Vaccination: No PNEUMOCCOCAL Vaccine (Year): 2 ?: Not LMP: NOW : 0 Ovarian Cysts: Yes (LEFT OVARIAN CYST REMOVED 09/14/06, ALSO IN 2007,2008) Past Surgical History Abdominal Surgery: No Cardiac Surgery: No Ear Surgery: No Endocrine Surgery: No Eye Surgery: No Genitourinary Surgery: No Gynecologic Surgery: Yes (ovarian cyst removed 09/14/06,AND 2007) Neurologic Surgery: No Oral Surgery: No Pacemaker: No Thoracic Surgery: No Other Surgery: Yes (ganglion cyst removed - LEFT WRIST) Social History Alcohol Use: Yes (OCCASIONAL) Tobacco Use: No Substance Use: No Allergies-Medications (Allergen,Severity, Reaction): Coded Allergies: No Known Allergies (Verified Adverse Reaction, Unknown, 10/20/17) Penicillins (Verified Adverse Reaction, Unknown, 10/20/17) STATES CAUSES YEAST INFECTIONS Reported Meds & Prescriptions Reported Meds & Active Scripts Active Review of Systems Except as stated in HPI: all other systems reviewed are Neg HENT: Positive: Congestion Respiratory: Positive: Cough Skin: Positive Rash Physical Exam Narrative GENERAL: Awake and alert and in no acute distress. SKIN: Warm and dry. She has a flat, red rash in both axillae. It has a well- circumscribed, irregular border. HEAD: Normocephalic/atraumatic. EYES: Pupils are equal. Extraocular movements are intact. NECK: Normal range of motion. RESPIRATORY: Nonlabored respirations. MUSCULOSKELETAL: Atraumatic. NEUROLOGICAL: Nonfocal. PSYCHIATRIC: Appropriate mood and affect. Data Data Last Documented VS Vital Signs Date Time Temp Pulse Resp B/P (MAP) Pulse Ox O2 Delivery O2 Flow Rate FiO2 10/20/17 09:35 97.9 98 16 153/103 (120) 99 MDM Medical Decision Making Medical Screen Exam Complete: Yes Emergency Medical Condition: Yes Differential Diagnosis The differential diagnosis of the skin rash includes but is not limited to allergic urticaria, scabies, insect bites, contact dermatitis Narrative Course Patient presents with the chief complaint of bilateral axillary rash. Exam is consistent with tinea. She will be discharged with instructions to use Lotrimin and to keep the area as cool and dry as possible. Diagnosis Primary Impression: Tinea Additional Instructions: Use Lotrimin (usually found in the athlete's foot section of the drugstore). Keep the area as cool and dry as possible. See your primary care provider if her symptoms continue. Disposition: 01 DISCHARGE HOME Condition: Stable Tash Jacobsen MD Oct 20, 2017 10:26
== END 2017-10-20 11:05 | disposition home or self-care (01) ==
LOC: PHEFT 09:32
DX: B35.9 Dermatophytosis, unspecified (principal)
CPT/HCPCS: 99282

== ENCOUNTER 2018-07-28 11:22 | Observation (INO) ==
[2018-07-28] MEDS ORDERED: Betamethasone Sod Phos/Acetate Inj 30 MG/5 ML Vial IM ONE (12:00)
--- NOTE | 2018-07-28 12:12 | P.HPOB ---
History of Present Illness Service: OB observation Primary Care Physician: No Primary Care Physician Chief Complaint: TIFFANIE <4 with mild elevated BP, nausea, vomiting and edema History of Present Illness: 28 yo mwf at 32 weeks EGA, seen by me today with an TIFFANIE of 3.5 on BPP. She has a mildly elevated BP of 130/80 (it was 114/70 at booking at 11 weeks) She has only gained two pounds but feels very swollen and puffy. Notes headaches, spots before her eyes, nausea and emesis x 1. She had 2+ protein on dip today. No leaking, bleeding Notes GFM despite low amniotic fluid. PNC with Dr. Jasso. No GDM, PTL. Hx of PIH at term with first child. Has hypothyroidism and on 50 ug synthroid daily Weeks Gestation:: 32 Para: 1 Review of Systems Constitutional: Reports headache(s), Reports malaise Eyes: Reports blurry vision, Reports floaters Cardiovascular: Reports foot swelling PMFSH - History History Provided By: Patient - Medical / Surgical Hx Neg / Unobtainable Medical Problems Denied: Yes - Medical History Medical History: Medical History (Last Reviewed 07/25/18 @ 20:12 by Isael Olivier MD) Hypothyroidism - Surgical History Surgical History: Surgical History (Last Reviewed 07/25/18 @ 20:12 by Isael Olivier MD) History of placement of ear tubes Hx of ovarian cystectomy Hx of umbilical hernia repair - Tobacco History Second Hand Smoke Exposure: No Smoking Status: Never smoker - Alcohol History How Often Do You Have a Drink Containing Alcohol: Never - Substance Use History Substance History: No History of Abuse - Travel History History of Recent Travel: No Recent Travel in the [place] Within the Last 8 Weeks: No Recent Travel Out of the Country Within the Last 8 Weeks: No - Immunization History Hx Influenza Vaccine This Season: No Medications and Allergies Active Medications: Active Medications Betamethasone Acet/Betameth SodPhos (Celestone Soluspan Inj) 12 mg IM NOW ONE Stop: 07/28/18 12:01 Betamethasone Acet/Betameth SodPhos (Celestone Soluspan Inj) 12 mg IM ONCE ONE Stop: 07/29/18 00:01 Allergies Allergy/AdvReac Type Severity Reaction Status Date / Time Penicillins AdvReac Irritation Verified 07/25/18 19:47 Home Medications Medication Instructions Recorded Confirmed Type levothyroxine 150 mcg PO DAILY 04/04/18 07/25/18 History hydroxyzine pamoate [Vistaril] 50 mg PO TID-QID PRN 07/11/18 07/25/18 History Exam Vital signs: Intake & Output 07/27/18 07/28/18 07/28/18 18:59 06:59 18:59 Weight 121.109 kg Other: Weight On Admission 267 kg - Constitutional mild distress - Routine HEENT Exam Head: Present: normocephalic Eye: Present: PERRL, normal accommodation - Routine Neck Exam Present: supple, full ROM - Routine Respiratory Exam Present: CTA bilaterally - Routine Cardiovascular Exam Present: RRR - Routine Abdominal Exam Present: soft, normoactive bowel sounds - Routine Extremities Exam Present: edema - Routine Neurological Exam Present: alert, oriented X3 - Additional findings Additional findings: cervix is 1 cm 50% and soft, anterior EFW 3 pounds pelvis clinically Caprini VTE Risk Assessment Caprini VTE Risk Assessment: No/Low Risk (score <= 1) Caprini Risk Assessment Model: Point Value = 1 Point Value = 2 Point Value = 3 Point Value = 5 Age 41-60 Minor surgery BMI > 25 kg/m2 Swollen legs Varicose veins or History of unexplained or recurrent spontaneous Oral contraceptives or hormone replacement Sepsis (< 1 month) Serious lung disease, including pneumonia (< 1 month) Abnormal pulmonary function Acute myocardial infarction Congestive heart failure (< 1 month) History of inflammatory bowel disease Medical patient at bed rest Age 61-74 Arthroscopic surgery Major open surgery (> 45 min) Laparoscopic surgery (> 45 min) Malignancy Confined to bed (> 72 hours) Immobilizing plaster cast Central venous access Age >= 75 History of VTE Family history of VTE Factor V Leiden Prothrombin [id number] Lupus anticoagulant Anticardiolipin antibodies Elevated serum homocysteine Heparin-induced thrombocytopenia Other congenital or acquired thrombophilia Stroke (< 1 month) Elective arthroplasty Hip, pelvis, or leg fracture Acute spinal cord injury (< 1 month) Prophylaxis Regimen: Total Risk Factor Score Risk Level Prophylaxis Regimen 0-1 Low Early ambulation 2 Moderate Order ONE of the following: *Sequential Compression Device (SCD) *Heparin 5000 units SQ BID 3-4 Higher Order ONE of the following medications: *Heparin 5000 units SQ TID *Enoxaparin/Lovenox 40 mg SQ daily (WT < 150 kg, CrCl > 30 mL/min) *Enoxaparin/Lovenox 30 mg SQ daily (WT < 150 kg, CrCl > 10-29 mL/min) *Enoxaparin/Lovenox 30 mg SQ BID (WT < 150 kg, CrCl > 30 mL/min) AND/OR *Sequential Compression Device (SCD) 5 or more Highest Order ONE of the following medications: *Heparin 5000 units SQ TID (Preferred with Epidurals) *Enoxaparin/Lovenox 40 mg SQ daily (WT < 150 kg, CrCl > 30 mL/min) *Enoxaparin/Lovenox 30 mg SQ daily (WT < 150 kg, CrCl > 10-29 mL/min) *Enoxaparin/Lovenox 30 mg SQ BID (WT < 150 kg, CrCl > 30 mL/min) AND *Sequential Compression Device (SCD) Assessment and Plan - Diagnosis (1) 32 week prematurity Code(s): P07.35 - , gestational age 32 completed weeks Status: Acute (2) Mild pre-eclampsia Code(s): O14.00 - Mild to moderate pre-eclampsia, unspecified trimester Status : Acute - Plan to [facility] for observation steroids monitoring labs repeat BPP to see if TIFFANIE returns to normal range and delivery can be postponed.
[2018-07-28 12:53] LABS: Baso % (Auto) 0.4 % (0.0-2.0); Eos # (Auto) 0.1 th/mm3 (0.0-0.4); Eos % (Auto) 0.5 % (0.0-4.0); Hematocrit 31.5 % (35.0-46.0); Hemoglobin 10.7 gm/dL (11.6-15.3); Lymph # (Auto) 1.7 th/mm3 (1.0-4.8); Lymph % (Auto) 12.9 % (9.0-44.0); Mean Corpuscular HGB Conc 34.1 % (32.0-36.0); Mean Corpuscular Hemoglobin 28.7 pg (27.0-34.0); Mean Corpuscular Volume 84.3 fL (80.0-100.0); Mean Platelet Volume 7.3 fL (7.0-11.0); Mono % (Auto) 7.7 % (0.0-8.0); Neut # (Auto) 10.1 th/mm3 (1.8-7.7); Neut % (Auto) 78.5 % (16.0-70.0); Platelet Count 359 th/mm3 (150-450); Red Blood Count 3.74 mil/mm3 (4.00-5.30); Red Cell Distribution Width 13.9 % (11.6-17.2); White Blood Count 12.8 th/mm3 (4.0-11.0)
[2018-07-28 13:08] LABS: Albumin 2.7 g/dL (3.4-5.0)
[2018-07-28 13:19] LABS: Free T4 (Free Thyroxine) 0.91 ng/dL (0.76-1.46); Thyroid Stimulating Hormone 0.976 uIU/mL (0.358-3.740); Total Protein 6.8 g/dL (6.4-8.2); Uric Acid 2.8 mg/dl (2.6-6.0)
[2018-07-28] MEDS: Acetaminophen 325 MG Tablet PO PRN (14:35)
[2018-07-28 15:01] LABS: Protein/Creatinine Ratio,Urine 0.05 (0.00-0.14); Total Protein,Urine Random 9.1 mg/dL (0-11.8)
[2018-07-28] MEDS ORDERED: Zolpidem Tartrate 5 MG Tablet PO PRN (21:00)
[2018-07-29] MEDS ORDERED: Levothyroxine 50 MCG Tablet PO SCH (06:00)
[2018-07-29] MEDS: Acetaminophen 325 MG Tablet PO PRN ×2 (08:05→11:57)
[2018-07-29] MEDS ORDERED: Prenatal Vit/Ca/Iron/Folic Acid Tablet PO SCH (09:00)
[2018-07-29 11:19] VITALS: RESP 6
[2018-07-29 11:44] VITALS: TEMP 98.7
[2018-07-29 12:00] VITALS: BP 129/74; PULSE 97
[2018-07-29] MEDS ORDERED: Betamethasone Sod Phos/Acetate Inj 30 MG/5 ML Vial IM ONE ×2 (13:00)
--- NOTE | 2018-07-29 14:33 | P.OBGPN ---
Patient reports she is doing well she has occasional headache no scotoma no right upper quadrant pain no significant swelling. Baby is moving well she denies any regular uterine contractions or bleeding or rupture of membranes. PE Well-developed well-nourished female resting comfortably in bed No obvious chest is clear to auscultation Heart has a regular rate and rhythm The abdomen is gravid nontender appropriate height Pelvic exam is deferred Extremities minimal swelling of the lower extremities her reflexes are +2 Assessment and plan Intrauterine at 32 weeks Oligohydramnios this is resolved, I will send her home on bedrest and drink plenty of fluids and will have her rescanned biophysical profile Wednesday morning at 7:00 Borderline blood pressures these have resolved as well her lab work is all perfectly normal her protein to creatinine ratio is normal. I do not believe that she had preeclampsia at all. Anemia we will get her started on some iron and iron rich She is to come back to the hospital or the office for any decreased movement rupture of membranes or bleeding We will repeat the steroids tomorrow
[2018-07-29 23:52] LABS: Thyroglobulin Abs 1 IU/mL (< OR = 1)
== END 2018-07-29 15:02 | disposition home or self-care (01) ==
LOC: H2E
PROVIDERS: ADMIT Obstetrics & Gynecology; ATTEND Obstetrics & Gynecology